=== PATIENT | female | born 1980 | race Caucasian/White ===

== ENCOUNTER 2017-08-03 12:03 | Emergency (ER) | payer SELFPAY ==
[2017-08-03] MEDS ORDERED: CEPHALEXIN 500 MG CAPSULE PO STA (13:19)
[2017-08-03] MEDS ORDERED: IBUPROFEN 600 MG TABLET PO ONE (13:23)
--- NOTE | 2017-08-03 13:25 | Emergency Department Record ---
History of Present Illness - General Chief Complaint: Laceration(s) Stated Complaint: LAC ON FINGER/WC Time Seen by Provider: 08/03/17 13:19 Source: Patient Mode of Arrival: Ambulatory Limitations: No limitations - History of Present Illness Initial Commments: 37 yo female presents with a right ring finger laceration from yesterday. She cut it on a sharp metal edge of a shelf at work yesterday. Today it is sore, mildly red. She states her last tetanus in the last year. She has had some chronic intermittent hand tingling mostly noted at night. No pus, no warmth, she has full ROM of the finger. Onset/Timin -: Days(s) Extremity Location: Right: Hand (ring finger) Place: Work Context: Accidental Associated Symptoms: None - Clem Coma Scale Eye Response: (4) Open spontaneously Motor Response: (6) Obeys commands Verbal Response: (5) Oriented Clem Total: 15 - Related Data Hx Tetanus Toxoid Vaccination: No Previous Rx's Medication Instructions Recorded Cephalexin [Keflex] 500 mg PO TID #21 cap 08/03/17 Ibuprofen [Motrin 600Mg] 600 mg PO Q6H #20 tablet 08/03/17 Allergies Allergy/AdvReac Type Severity Reaction Status Date / Time No Known Drug Allergies Allergy Unverified 05/30/17 16:28 Travel Screening - Travel/Exposure Within Last 30 Days Have you traveled within the last 30 days?: No - Travel/Exposure Within Last Year Have you traveled outside the [place] in the last year?: No - Additonal Travel Details Have you been exposed to anyone with a communicable illness?: No - Travel Symptoms Symptom Screening: None Review of Systems Constitutional: Denies: Chills, Fever, Malaise, Weakness Eyes: Denies: Eye discharge ENT: Denies: Congestion, Throat pain Respiratory: Denies: Cough Cardiovascular: Denies: Chest pain, Palpitations, Syncope Endocrine: Denies: Fatigue Gastrointestinal: Denies: Abdominal pain, Diarrhea, Nausea, Vomiting Genitourinary: Denies: Dysuria, Urgency Musculoskeletal: Reports: Arthralgia. Denies: Back pain, Myalgia Skin: Denies: Bruising, Change in color, Rash Neurological: Denies: Confusion, Headache Psychiatric: Denies: Anxiety, Visual hallucinations Hematological/Lymphatic: Denies: Blood Clots, Easy bruising, Swollen glands Past Medical History - SOCIAL HISTORY Smoking Status: Current every day smoker Alcohol Use: None Drug Use: None - RESPIRATORY Hx Respiratory Disorders: Yes Hx Bronchitis: Yes - CARDIOVASCULAR Hx Cardio Disorders: No - NEURO Hx Neuro Disorders: No - GI Hx GI Disorders: No - Hx Genitourinary Disorders: No - ENDOCRINE Hx Endocrine Disorders: No Hx Diabetes: No Hx Thyroid Disease: No - MUSCULOSKELETAL Hx Musculoskeletal Disorders: No - PSYCH Hx Psych Problems: Yes Hx Anxiety: Yes Hx Behavior Problems: Yes (BiPolar) Hx Depression: Yes - HEMATOLOGY/ONCOLOGY Hx Hematology/Oncology Disorders: No Family Medical History Any Significant Family History?: No Hx Cancer: Father, Mother Physical Exam - General General Appearance: Alert, Oriented x3, Cooperative, No acute distress Limitations: No limitations - Head Head exam: Atraumatic, Normal inspection - Eye Eye exam: Normal appearance - ENT ENT exam: Normal exam Ear exam: Normal external inspection Nasal Exam: Normal inspection Mouth exam: Normal external inspection - Neck Neck exam: Normal inspection - Respiratory Respiratory exam: Normal lung sounds bilaterally. negative: Respiratory distress - Cardiovascular Cardiovascular Exam: Regular rate, Normal rhythm, Normal heart sounds Peripheral Pulses: 2+: Radial (R) - Rectal Rectal exam: Deferred - exam: Deferred - Extremities Extremities exam: negative: Normal inspection Image of Hand: 1 - very superfical laceration vs abrasion, no abnormal warmth, no pus, full extension and flexion, no weakness, very mild swelling. cut is very superficial. - Back Back exam: Reports: Full ROM - Neurological Neurological exam: Alert, Oriented X3 - Psychiatric Psychiatric exam: Normal affect, Normal mood - Skin Skin exam: Dry, Intact, Normal color, Warm Course Vital Signs 08/03/17 13:01 Temperature 98.2 F Pulse Rate 81 Respiratory 16 Rate Blood Pressure 145/65 Pulse Ox 95 - Reevaluation(s) Reevaluation #1: 08/03/17 13:27 No over sign of infection but she has mild swelling No sign of FB or tendon dysfunction we discussed splint, home care and follow up as well as reason to return to the ED Disposition Disposition: Discharge Clinical Impression: Finger laceration Disposition: Home, Self-Care Condition: (1) Good Instructions: Laceration (ED) Additional Instructions: Use the splint the next 5 days No heavy lifting with hand Use the splint for support and protection Prescriptions: Cephalexin [Keflex] 500 mg PO TID #21 cap Ibuprofen [Motrin 600Mg] 600 mg PO Q6H #20 tablet Time of Disposition: 13:25 Quality - Quality Measures Quality Measures: N/A - Blood Pressure Screening Does Patient Have Any of the Following: No Blood Pressure Classification: Hypertensive Reading Systolic Measurement: 145 Diastolic Measurement: 65 Screening for High Blood Pressure: Pre or Hypertensive BP, No F/U Documented [ [id number]] Pre-Hypertensive Follow-up Interventions: Referral to alternative/primary care provider.
== END 2017-08-03 13:46 | disposition home or self-care (01) ==
LOC: ER 12:03
DX: S61.212A Laceration without foreign body of right middle finger without damage to nail, initial encounter (principal); W45.8XXA Other foreign body or object entering through skin, initial encounter; Y92.512 Supermarket, store or market as the place of occurrence of the external cause; Y90.0 Blood alcohol level of less than 20 mg/100 ml
CPT/HCPCS: 99282